=== PATIENT | female | born 1990 | race Hispanic/Latino ===

== ENCOUNTER 2017-03-19 13:32 | Emergency (ER) | payer SELFPAY ==
[~2017-03-19] VITALS: Ht 162.6 cm; Wt 60.9 kg
[~2017-03-19 13:32] MED LIST: CYTOTEC200 MCG PO; DOXYCYCL HYC100 M4 PO; IRON325 MG PO; LORTAB 5-325 MG1 TAB PO; PERCOCET 5/325M1 TAB PO; PRENATAL1 TA1 PO
[2017-03-19] MEDS ORDERED: PERCOCET 5/325M1 TAB PO (14:08)
[2017-03-19] MEDS ORDERED: BACTRIM DS1 TAB PO (14:08)
[2017-03-19 14:29] VITALS: BP 121/67
== END 2017-03-19 14:36 | disposition home or self-care (01) | DRG 759 ==
LOC: ED 13:32
DX: N76.4 Abscess of vulva (principal)

== ENCOUNTER 2017-03-21 08:26 | Observation (INO) | payer OTHER ==
[~2017-03-21] VITALS: Ht 162.6 cm; Wt 60.9 kg
[2017-03-21] VITALS (9 sets, daily range): BP systolic 87–120; BP diastolic 46–72
[~2017-03-21 08:26] MED LIST changes: +BACTRIM DS1 TAB PO
[2017-03-21 09:48] LABS: IMMATURE GRANULOCYTES 0.7 % (0.0-1.0); MEAN CELL VOLUME 87.2 fL CALC (80.0-100.0); MEAN CORPUSCULAR HGB 28.4 pG CALC (26.0-32.0); MEAN CORPUSCULAR HGB CONC 32.6 g/L CALC (32.0-36.0); NEUT# 10.9 thou/uL (2.00-7.15); RED BLOOD COUNT 4.93 mill/uL (4.20-5.60); RED CELL DISTRI WIDTH 14.2 % (11.5-15.5)
[2017-03-21 10:05] LABS: ALBUMIN 4.2 g/dL (3.2-5.0); ALKALINE PHOSPHATASE 101 u/l (38-126); ANION GAP 18 (6-22 (CALC)); BILIRUBIN, TOTAL 0.5 mg/dL (0.0-1.4); BUN 11 mg/dL (7-17); BUN/CREATININE RATIO 18 (12-20 (CALC)); CARBON DIOXIDE 27 mmol/l (22-30); CHLORIDE 100 mmol/l (95-108); CREATININE 0.6 mg/dL (0.5-1.0); GFR > 60 ML/MIN (>=60 (CALC)); GFR FOR AFR.AMER. > 60 ML/MIN (>=60 (CALC)); GLUCOSE 98 mg/dL (65-105); SGOT/AST 30 u/l (14-36); SGPT/ALT 57 u/l (9-52); SODIUM 141 mmol/l (137-146); TOTAL PROTEIN 8.2 g/dL (6.3-8.2)
[2017-03-22 04:05] VITALS: BP 112/70
[2017-03-22 08:01] VITALS: BP 96/50
[2017-03-22] MEDS ORDERED: HYDROCO/APAP1 T12 PO (10:48)
== END 2017-03-22 13:00 | disposition home or self-care (01) | DRG 747 ==
LOC: ENPENDDIS → ED 08:26 → ED-I 09:27 → ED 10:07 → MS2 10:08
PROVIDERS: Emergency Medicine
PROC: 0U9M0ZX Drainage of Vulva, Open Approach, Diagnostic (ICD-10-PCS; principal; 2017-03-21)
DX: N76.4 Abscess of vulva (principal); N76.2 Acute vulvitis
CPT/HCPCS: G0378; J3370

== ENCOUNTER 2017-03-26 04:02 | Observation (INO) | payer OTHER ==
[~2017-03-26] VITALS: Ht 162.6 cm; Wt 61.0 kg
[2017-03-26] VITALS (18 sets, daily range): BP systolic 90–119; BP diastolic 41–65
[~2017-03-26 04:02] MED LIST changes: +HYDROCO/APAP1 T12 PO
--- NOTE | 2017-03-26 04:11 | NUR ---
PATIENT TO ROOM 8. UNDRESSED INTO A GOWN. AWAITING MD CHIU.
[2017-03-26 04:35] LABS: HEMATOCRIT 41.2 % (37.0-47.0); HEMOGLOBIN 13.6 g/dl (12.0-16.0); IMMATURE GRANULOCYTES 1.2 % (0.0-1.0); MEAN CELL VOLUME 87.5 fL CALC (80.0-100.0); MEAN CORPUSCULAR HGB 28.9 pG CALC (26.0-32.0); NEUT# 3.81 thou/uL (2.00-7.15); RED BLOOD COUNT 4.71 mill/uL (4.20-5.60); RED CELL DISTRI WIDTH 13.9 % (11.5-15.5)
[2017-03-26 04:52] LABS: ALBUMIN 4.2 g/dL (3.2-5.0); ALKALINE PHOSPHATASE 85 u/l (38-126); ANION GAP 17 (6-22 (CALC)); BILIRUBIN, TOTAL 0.4 mg/dL (0.0-1.4); BUN 12 mg/dL (7-17); BUN/CREATININE RATIO 17 (12-20 (CALC)); CALCIUM 9.7 mg/dL (8.4-10.2); CARBON DIOXIDE 24 mmol/l (22-30); CHLORIDE 104 mmol/l (95-108); CREATININE 0.8 mg/dL (0.5-1.0); GFR > 60 ML/MIN (>=60 (CALC)); GFR FOR AFR.AMER. > 60 ML/MIN (>=60 (CALC)); GLUCOSE 99 mg/dL (65-105); POTASSIUM 3.7 mmol/l (3.5-5.1); SGOT/AST 31 u/l (14-36); SGPT/ALT 59 u/l (9-52); SODIUM 142 mmol/l (137-146); TOTAL PROTEIN 7.8 g/dL (6.3-8.2)
--- NOTE | 2017-03-26 05:10 | NUR ---
UPON EXAM BY MD PATIENT SITTING IN BLOOD, UNDERWEAR AND PAD REMOVED. PATIENT APPEARS TO BE BLEEDING FROM RIGHT INNER LABIA. PATIENT STATES SHE A A BARTHOLEN CYST REMOVED TRHEE DAYS AGO. STATES BLEEDING HAD STOPPED AFTER PROCEDURE. PATIENT C/O DIZZINESS AND FEELING FAINT.
--- NOTE | 2017-03-26 05:15 | NUR ---
MANUAL PRESSURE WITH ABD PAD APPLIED TO INNER LABIA TO ASSIT IN BLEEDING CONTROL. PATIENT PLACED SUPINE. PLACED ON MONITOR.
--- NOTE | 2017-03-26 05:25 | NUR ---
PATIENT STATES SHE IS FEELING LESS DIZZY. PATIENT CLEANED, LINENS CHANGED. IVF INFUSING. WILL CONITNUE TO MONITOR.
--- NOTE | 2017-03-26 05:33 | NUR ---
BP IMPROVING, LAB AT BEDSIDE FOR ADDITIONAL BLOOD DRAW.
--- NOTE | 2017-03-26 05:42 | NUR ---
PRESSURE DRESSING REMOVED AND INCISION REASSESSED. BLEEDING APPEARS TO HAVE STOPPED. SMALLER DRESSING APPLIED TO INNER LABIA. PATIENT TOLERATED WELL. WILL CONTINUE TO MONITOR BLEEDING STATUS AND BLOOD PRESSURE.
--- NOTE | 2017-03-26 06:30 | NUR ---
PATIENT RESTING QUIETLY ON STRETCHER. MOTHER AT BEDSIDE. BLEEDING REMAINS CONTROLLED. BP CONTINUES TO IMPROVE
[2017-03-26 06:31] LABS: HEMATOCRIT 32.6 % (37.0-47.0); HEMOGLOBIN 10.6 g/dl (12.0-16.0)
--- NOTE | 2017-03-26 07:01 | NUR ---
PACKING REMOVED AND NO BLEEDING NOTED. VSS. PLACED ON BEDPAN AND APPROX 400CC CLEAR ELIJAH URINE. PT ALERT AND ORIENTED.
--- NOTE | 2017-03-26 07:24 | NUR ---
DR SEVERINO AT BEDSIDE. NO ACTIVE BLEEDING NOTED. VSS. AWARE OF ADMISSION. PT MAINTAINED BED BOUND AT THIS TIME.
--- NOTE | 2017-03-26 07:40 | NUR ---
ASSISTED PT WITH BED PAIN 600CC URINE. ADVISED OF NPO STATUS
--- NOTE | 2017-03-26 08:13 | NUR ---
INITIATED IV BOLUS NS PER MD ORDER. BP 88/56. PT ALERT AND RESPONDS APPROPRIATELY. AWARE OF POC. MAINTAINED SUPINE. NO ACTIVE BLEEDING
--- NOTE | 2017-03-26 08:37 | NUR ---
CALLED REPORT TO AFTAB WILLIAMSON RN ICU
--- NOTE | 2017-03-26 08:45 | NUR ---
PT TRANSPORTED TO ICU VIA STRETCHER IN STABLE CONDITION
--- NOTE | 2017-03-26 08:57 | NUR ---
PT ADMITTED TO ICU BED 1 MS OVERFLOW (TELE), PT DARIAN DOMINGUEZ OREIENTED, TRASNFERRED SELF TO BED, STOOD AND AMBULATED TO BATHROOM WITH STEADY GAIT, VOIDED 600 ML PINK TINGED URINE, WITH SMALL AMOUNT OF BLEED SMEAR NOTED WITH MAREN CARE, PT VERBALIZES HAVING WHAT WAS THOUGHT TO BED VAGINAL BLEEDING PROFUSELY AT HOME, UPON CLEANING AND INSPECTION IN ER WAS DIAGNOSED BARTHELIN CYST /ABSCESS, PT ALSO HAD RECENT HISTORY OF I&D OF Right labia majora abscess AND D/C'D ON 03/22/17 WITH SOME MINIMAL BLEEDING POST OP THAT OWRSENED AT APPROX 2 AM THIS AM WITH PROFUSE BLEEDING NOTED IN ER PER REPORT. IVF INFUSING AT PRESCRIBED RATE INTO IV ACCESS IN RAC WITH GOOD ASPIRATE NOTED, SAFETY MEASURES INTRODUCED, ALLMONITORING EQUIPMENT EXPLAINED PRIOR TO AP[PLICATION, SKIN WARM DRY AND INTACT, TELE READING SR RATE INT HE 60-70'S, BP STABLE, AFEBRILE, ORIENTED TO ROOM AND UNIT WITH CALL PITT WITHIN REACH, SAFETY MEASURES INTRODUCED, WILL CONTINUE TO MONITOR.
--- NOTE | 2017-03-26 09:35 | NUR ---
PT AWARE OF NPO STATUS, OFFERS NO NEW COMPLAINTS, NO BLEEDING NOTED, WILL CONTINUE TO MONITOR
[2017-03-26 09:51] LABS: HEMATOCRIT 32.5 % (37.0-47.0); HEMOGLOBIN 10.6 g/dl (12.0-16.0); MEAN CELL VOLUME 88.8 fL CALC (80.0-100.0); MEAN CORPUSCULAR HGB CONC 32.6 g/L CALC (32.0-36.0); RED BLOOD COUNT 3.66 mill/uL (4.20-5.60)
--- NOTE | 2017-03-26 10:23 | NUR ---
FAMILY MEMBERS AT BEDSIDE, OFFERS NO COMPLAINTS, NPO STATUS MAINTAINED, LAB INTO DRAW LABWORK EARLIER W/O INCIDENT, WILL CONTINUE TO MONITOR.
--- NOTE | 2017-03-26 13:15 | NUR ---
INTO SEE PATIENT, DISCHARGE ORDER WRITTEN, PT VERBALIZES UNDERSTANDING, FAMILY MEMBERS AT BEDSIDE, WILL CONTINUE TO MONITOR.
--- NOTE | 2017-03-26 14:37 | NUR ---
Discharged to: Home Discharged via: Wheelchair Accompanied by: family D/C Condition: stable Diet: Regular Diet modification: NONE Activity: No strenuous activity Home Health: NONE Follow up appointment: CALL AND SCHEDULE AN APPOINTMENT TO BE SEEN NEXT WEEK [phone] Special instructions: ANY FURTHER HEAVY BLEEDING CALL YOUR DOCTOR OR RETURN TO LOCAL E.R. Medications: SEE MEDICATION RECONCILIATION FORM Prescriptions Given: NONE Please notify your physician if you received either one of these vaccinations: Influenza Vaccine - Date: N/A Pneumococcal Vaccine - Date: N/A IF SYMPTOMS WORSEN, OR IF YOU HAVE ADDITIONAL QUESTIONS, PLEASE CONTACT YOUR PERSONAL PHYSICIAN OR SEEK EMERGENCY CARE. CALL YOUR PHYSICIAN IF YOU DO NOT GET RELIEF FROM THE PAIN MEDICATIONS PRESCRIBED, OR IF THE INTENSITY OF PAIN INCREASES, OR IF PAIN IS INTERFERING WITH ACTIVITY OR REST. IF YOU SMOKE, YOU NEED TO QUIT. IT IS GOOD FOR YOU AND EVERYONE AROUND YOU! Your physician and [facility] care about you and your health. The facts are clear. Smoking causes 1 out of 5 deaths in the [place] each year. It is the major preventable cause of emphysema, lung cancer, chronic bronchitis, heart disease and stroke. Quitting is one of the best things you can ever do for yourself and those you love. What better time to quit than now! You've already been cigarette free during your stay. Studies have shown that the first 48 hours of quitting are the toughest. Just a few of the benefits your body begins to experience are blood pressure returns to normal, the carbon monoxide level in your blood drops to normal, your chance of heart attack decreases, and your ability to smell and taste is enhanced. Here are some resources that you may find helpful: [place] [employer] [place] [employer] [employer] www.lungusa.org www.cancer.org [place] [employer] [employer] [place] Department of Health (Tobacco Prevention and Control Program) www.americanheart.org www.marti.[email or web address].fl.us Finally don't forget that your doctor may be able to help you. Whichever method you choose will be good for you. IF YOU HAVE A DIAGNOSIS OF CONGESTIVE HEART FAILURE, THERE ARE SEVERAL ADDITIONAL INSTRUCTIONS FOR YOU TO FOLLOW UPON DISCHARGE FROM THE HOSPITAL. Weigh yourself every day and if weight gain is greater than 2 pounds in a day, call your physican. If you experience worsening symptoms such as: Problems with breathing or shortness of breath Ankle/foot/leg swelling Unexplained weight gain greater than 2 pounds Call your physician or come to the emergency room. IF YOU HAVE A DIAGNOSIS OF STROKE, THERE ARE SEVERAL ADDITIONAL INSTRUCTIONS FOR YOU TO FOLLOW: A stroke occurs when something happens to interrupt the steady flow of blood to the brain, like a clot or a burst in a blood vessel. Brain cells quickly begin to . These INCREASE your chance of having a STROKE: * Smoking * High blood pressure * Diabetes * Obesity WARNING SIGNS OR SYMPTOMS: * Sudden weakness on one side of body. * Sudden confusion, trouble speaking or understanding. * Sudden trouble seeing. * Sudden trouble walking or loss of balance. * Sudden severe headache with no known cause. CALL At Any Sign of Stroke. You can beat a stroke. Disabilities can be prevented or limited, but you have must go to the Emergency Department immediately. Go in an Ambulance. Save Time. Be Seen Faster! If you were admitted to the hospital for a stroke After DISCHARGE you must: * Keep ALL follow up appointments. * Take your medications as ordered by your doctor. * Do not take any other drugs without checking with your doctor first. * Do not drive unless your doctor says it is okay. * Call your doctor with any questions or concerns. IF YOU WERE DISCHARGED ON COUMADIN/WARFARIN ANTICOAGULATION THERAPY, THERE ARE SEVERAL ADDITIONAL INSTRUCTIONS FOR YOU TO FOLLOW: Anticoagulants are medications that help prevent blood clots. They are often prescribed for people with certain heart, lung and blood vessel diseases to help prevent heart attacks and strokes. IMPORTANT Anticoagulation medications have been used for many years, but it can be difficult to manage. That's because many factors can affect how they work-including small changes in dose or dose timing, what you eat or drink, other medications and stress. You and your doctor must work closely together to manage this important medication. * Take your medicine EXACTLY as instructed by your doctor. * You must have your blood drawn for PT/INR to monitor your medication. * Do not take any new medications, vitamins or herbal supplements without asking your doctor first. FOODS: * Eat the same amount of foods that contain Vitamin K every day. * Avoid or limit alcohol. * Avoid major changes in diet or notify your doctor first. FOLLOW UP MONITORING: See your physician within one week to monitor your condition. You will need to have blood tests performed to monitor the medication. DRUG INTERACTIONS: * Diet and medications can affect the PT/INR level. * Do not take or discontinue any medication or over the counter medication unless your doctor okays. * Warfarin/Coumadin increases the risk of bleeding. CALL YOUR PHYSICIAN IF: If you notice any signs of increased bleedin. Excessive bruising. 2. Abnormal bleeding from nose or gums. 3. Tolstoy, red or dark brown urine. 4. Minor bleeding or bright red blood from the bowel. CALL 911 OR GO TO THE HOSPITAL IF: 1. You have black tarry stools. 2. Sudden dizziness, faintness or weakness. 3. Cold or numbness in arm or leg. 4. Sudden chest pain. 5. Trouble talking or moving one side of body. 6. Coughing or vomiting bright red blood. 7. Severe headache or stomach pain. 8. Serious fall or hit to the head. Visit our website at [email or web address] You are going home today. Depending on your insurance coverage, you may be receiving a bill from the hospital for your hospital stay. If you have any question about your bill, please call the Business Office at [phone] or contact us at our web address: [email or web address]. If applicable, I have received my medication information as recommeded by my provider upon discharge. I have read and understand the above discharge instructions. Pt Signature: Date: Time: Witnessed by: Date: Time: Complete the record of communication to the next provider below. These discharge instructions, including discharge medications, is to be faxed to the next provider at the time of the patient's discharge. ____These instructions faxed to next Provider (Provider Name) on (Date) @ (Time) . ____The second provider involved in patient care following discharge has been faxed this information. These instructions faxed to (Provider-Home Health, Physical Therapy, Agency) on (Date) @ (Time) . OR ____Patient unable/unwilling to verbalize who the next provider of care will be, instructed patient to take these instructions to next appointment with healthcare provider.
--- NOTE | 2017-03-26 15:12 | NUR ---
PT AMBULATED OFF THE UNIT WANTED TO WALK.
--- NOTE | 2017-03-26 15:15 | NUR ---
Discharge instructions given. Patient verbalizes understanding of same. Discharged in stable condition via Wheelchair to Home with family. All belongings sent with pt.
== END 2017-03-26 15:15 | disposition home or self-care (01) | DRG 921 ==
LOC: ED 04:02 → ED-I 04:20 → ED 07:27 → ICU 07:28
PROVIDERS: Emergency Medicine
DX: N99.820 Postprocedural hemorrhage of a genitourinary system organ or structure following a genitourinary system procedure (principal); I95.9 Hypotension, unspecified; F17.210 Nicotine dependence, cigarettes, uncomplicated; Y84.8 Other medical procedures as the cause of abnormal reaction of the patient, or of later complication, without mention of misadventure at the time of the procedure

== ENCOUNTER 2017-03-27 15:40 | Emergency (ER) | payer SELFPAY ==
[~2017-03-27] VITALS: Ht 162.6 cm; Wt 62.0 kg
[2017-03-27 16:32] LABS: HEMATOCRIT 30.4 % (37.0-47.0); HEMOGLOBIN 10.1 g/dl (12.0-16.0); MEAN CELL VOLUME 87.6 fL CALC (80.0-100.0); MEAN CORPUSCULAR HGB 29.1 pG CALC (26.0-32.0); MEAN CORPUSCULAR HGB CONC 33.2 g/L CALC (32.0-36.0); NEUT# 3.53 thou/uL (2.00-7.15); RED BLOOD COUNT 3.47 mill/uL (4.20-5.60); RED CELL DISTRI WIDTH 14.1 % (11.5-15.5)
[2017-03-27 16:50] VITALS: BP 96/58
[2017-03-27 16:50] LABS: ALBUMIN 3.8 g/dL (3.2-5.0); ALKALINE PHOSPHATASE 73 u/l (38-126); ANION GAP 14 (6-22 (CALC)); BILIRUBIN, TOTAL 0.3 mg/dL (0.0-1.4); BUN 8 mg/dL (7-17); BUN/CREATININE RATIO 13 (12-20 (CALC)); CALCIUM 9.1 mg/dL (8.4-10.2); CARBON DIOXIDE 23 mmol/l (22-30); CHLORIDE 105 mmol/l (95-108); CREATININE 0.6 mg/dL (0.5-1.0); GFR > 60 ML/MIN (>=60 (CALC)); GFR FOR AFR.AMER. > 60 ML/MIN (>=60 (CALC)); GLUCOSE 82 mg/dL (65-105); POTASSIUM 4.2 mmol/l (3.5-5.1); SGOT/AST 25 u/l (14-36); SGPT/ALT 50 u/l (9-52); SODIUM 138 mmol/l (137-146); TOTAL PROTEIN 6.7 g/dL (6.3-8.2)
== END 2017-03-27 17:06 | disposition home or self-care (01) | DRG 909 ==
LOC: ED 15:40
PROVIDERS: Emergency Medicine
PROC: 0W3N3ZZ Control Bleeding in Female Perineum, Percutaneous Approach (ICD-10-PCS; principal; 2017-03-27)
DX: N99.820 Postprocedural hemorrhage of a genitourinary system organ or structure following a genitourinary system procedure (principal); F17.200 Nicotine dependence, unspecified, uncomplicated; Y83.8 Other surgical procedures as the cause of abnormal reaction of the patient, or of later complication, without mention of misadventure at the time of the procedure

== ENCOUNTER 2017-04-01 11:39 | Emergency (ER) | payer SELFPAY ==
[~2017-04-01] VITALS: Ht 162.6 cm; Wt 50.0 kg
[2017-04-01 12:07] VITALS: BP 126/77
== END 2017-04-01 12:13 | disposition home or self-care (01) | DRG 951 ==
LOC: ED 11:39
DX: Z48.02 Encounter for removal of sutures (principal)